=== PATIENT | female | born 1985 | race Caucasian/White ===

== ENCOUNTER → 2018-03-06 | Outpatient (CLI) | payer OTHER | LOC: M.RAD 16:49 | DX: M51.34 Other intervertebral disc degeneration, thoracic region (principal); M54.2 Cervicalgia; M25.551 Pain in right hip; M25.552 Pain in left hip; M89.8X9 Other specified disorders of bone, unspecified site; M25.531 Pain in right wrist; M25.511 Pain in right shoulder; M25.512 Pain in left shoulder; M25.532 Pain in left wrist; R07.81 Pleurodynia ==